=== PATIENT | female | born 2000 | race Two or more races ===

== ENCOUNTER 2023-09-21 20:57 | Emergency (ER) | payer OTHER ==
[~2023-09-21] VITALS: Ht 165.1 cm; Wt 80.3 kg
[~2023-09-21 20:57] MED LIST: BENADRYL50 MG PO
[2023-09-21 22:34] LABS: HEMATOCRIT 42.3 % (36.0-45.00); MEAN CELL VOLUME 89.5 fL (80.00-100.00); MEAN CORPUSCULAR HEMOGLOBIN 29.6 pg (27.00-32.0); PLATELET COUNT 172 K/uL (150-450); RED BLOOD COUNT 4.72 M/uL (4.00-6.00); RED CELL DISTRIBUTION WIDTH 13.7 % (11.5-14.5)
[2023-09-21 23:01] LABS: CALCIUM 8.8 mg/dL (8.5-10.1); CREATININE SERUM 0.56 mg/dL (0.55-1.02); GFR 131.9; POTASSIUM 3.3 mEq/L (3.5-5.1)
[2023-09-22 00:22] LABS: PH,URINE 5.5 (5.0-8.0); URINE APPEARANCE Clear; URINE BILIRRUBIN Small (NEGATIVE); URINE BLOOD Moderate; URINE COLOR Dark Yellow; URINE GLUCOSE Negative (NEGATIVE); URINE LEUKOCYTE Trace; URINE NITRATE Negative; URINE PROTEIN 30 (NEGATIVE)
[2023-09-22 00:23] LABS: URINE BACTERIA 2654.8 uL (0.0-1933); URINE EPITHELIAL CELLS 64.7 uL (0.0-38.8); URINE RBC 13.2 uL (0.0-20.8); URINE WBC 36.6 uL (0.0-23.2)
[2023-09-22] MEDS ORDERED: INTESTINEX680 M1 PO (05:52)
[2023-09-22] MEDS ORDERED: ONDANSETRON ODT4 MG PO (05:52)
[2023-09-22] MEDS ORDERED: PEPCID40 MG PO (05:52)
[2023-09-22] MEDS ORDERED: LEVSIN/SL0.125 MG SL (05:52)
== END 2023-09-22 06:07 ==
LOC: ER 20:58
PROVIDERS: Emergency Medicine
DX: K52.89 Other specified noninfective gastroenteritis and colitis (principal)

== ENCOUNTER 2025-07-19 01:52 | Emergency (ER) | payer OTHER ==
[~2025-07-19] VITALS: Ht 165.1 cm; Wt 97.5 kg
[~2025-07-19 01:52] MED LIST changes: +INTESTINEX680 M1 PO; +LEVSIN/SL0.125 MG SL; +ONDANSETRON ODT4 MG PO; +PEPCID40 MG PO
[2025-07-19] MEDS ORDERED: KETOROLAC TROMETHAMINE 60 MG VIAL IM STA (03:59)
[2025-07-19] MEDS ORDERED: ORPHENADRINE CITRATE 30 MG/ML AMPUL IM STA (04:00)
[2025-07-19] MEDS ORDERED: NORFLEX100MG PO (04:24)
[2025-07-19] MEDS ORDERED: KETO10TA2 PO (04:24)
[2025-07-19 04:31] VITALS: BP 120/64; O2SAT 99
== END 2025-07-19 04:34 ==
LOC: ER 02:10
DX: M54.50 Low back pain, unspecified (principal)

== ENCOUNTER 2025-07-26 19:23 | Emergency (ER) | payer OTHER ==
[~2025-07-26] VITALS: Ht 165.1 cm; Wt 90.7 kg
[~2025-07-26 19:23] MED LIST changes: +KETO10TA2 PO; +NORFLEX100MG PO
[2025-07-26 20:43] LABS: BASO % 0.5 % (0.1-1.2); EOS # 0.11 (0.04-0.54); EOS % 1.2 % (0.7-7.0); LYMPH # 2.41 (1.18-3.74); LYMPH % 27.4 % (19.3-53.1); MEAN PLATELET VOLUME 11.70 fl (9.4-12.4); MONO # 0.90 (0.24-0.82); MONO % 10.2 % (4.7-12.5); NEUT # 5.32 (1.56-6.13); NEUT % 60.4 % (34.0-71.1); RED CELL DISTRIBUTION WIDTH 13.6 % (11.6-14.4)
[2025-07-26 20:54] LABS: INR 1.0
[2025-07-26] MEDS ORDERED: MEDROXYPROGESTE10 MG PO (21:50)
== END 2025-07-26 22:07 | disposition home or self-care (01) ==
LOC: ER 19:23
PROVIDERS: General Practice
DX: N92.3 Ovulation bleeding (principal); D25.9 Leiomyoma of uterus, unspecified